=== PATIENT | female | born 1995 | race Caucasian/White ===

== ENCOUNTER 2016-08-10 03:06 | Emergency (ER) | payer OTHER ==
[~2016-08-10] VITALS: Ht 162.6 cm; Wt 99.8 kg
[~2016-08-10 03:06] MED LIST: MICA40TA PO; NEXI40CA PO; PRED20TA PO; TOPA50TA7 PO
[2016-08-10] MEDS ORDERED: DILT60TA PO (03:14)
[2016-08-10] MEDS ORDERED: methylPREDNISolone INJ 125 MG/2 ML VIAL (J2930) IV ONE (03:30)
[2016-08-10] MEDS ORDERED: NS 1,000 ML IV ONE (03:30)
[2016-08-10] MEDS ORDERED: diphenhydrAMINE INJ 50MG/ML VIAL (J1200) IV ONE (03:30)
[2016-08-10] MEDS ORDERED: FAMOTIDINE IV BAG 20 MG in APPROPRIATE DILUENT 1 EA IV ONE (03:30)
[2016-08-10 04:38] VITALS: BP 123/86
[2016-08-10] MEDS ORDERED: PRED20TA PO (04:42)
[2016-08-10 05:04] LABS: ANION GAP 10 MEQ/L (8-16); BLOOD UREA NITROGEN 26 MG/DL (7-18); CALCIUM LEVEL 7.2 MG/DL (8.5-10.1); CARBON DIOXIDE LEVEL 24 MEQ/L (21-32); CHLORIDE LEVEL 108 MEQ/L (98-107); CREATININE FOR GFR 2.36 MG/DL (0.55-1.02); GLUCOSE, FASTING 95 MG/DL (70-105); POTASSIUM SERUM 3.8 MEQ/L (3.5-5.1); SODIUM LEVEL 142 MEQ/L (136-145)
== END 2016-08-10 04:47 | disposition home or self-care (01) ==
LOC: M ED 03:51
DX: T78.3XXA Angioneurotic edema, initial encounter (principal); Z79.899 Other long term (current) drug therapy; Z88.2 Allergy status to sulfonamides; Z88.1 Allergy status to other antibiotic agents; Z91.040 Latex allergy status
CPT/HCPCS: 36415; 80048; 86850; 86900; 86901; 96361; 96374; 96375; 99283; J1200; J2930

== ENCOUNTER 2017-07-07 06:01 | Inpatient (IN) | payer OTHER ==
[2017-07-07] MEDS: NS 1,000 ML IV ×3 (06:40→20:35)
[2017-07-07] MEDS: KETOROLAC 30 MG/ML VIAL (J1885) IV (06:41)
[2017-07-07] MEDS: MORPHINE 4 MG/ML 1ML VIAL (J2270) IV (06:41)
[2017-07-07] MEDS: ONDANSETRON 4MG/2ML VIAL (J2405) IV (06:43)
[2017-07-07 06:47] LABS: BASO % 0.3 % (0.0-1.0); EOS # 0.3 10^3/uL (0.0-0.50); EOS % 2.5 % (0.0-3.0); HEMATOCRIT 27.7 % (36.0-47.0); HEMOGLOBIN 8.8 g/dl (12.0-16.0); IMMATURE GRANULOCYTE % 0.4 % (0-3.0); LYMPH # 2.2 10^3/uL (1.5-6.5); LYMPH % 18.6 % (24.0-44.0); MEAN CORPUSCULAR HEMOGLOBIN 23.9 pg (27.0-33.0); MEAN CORPUSCULAR HGB CONC 31.8 g/dl (32.0-36.5); MEAN CORPUSCULAR VOLUME 75.3 fl (80.0-96.0); MONO # 0.7 10^3/uL (0.0-0.8); MONO % 5.5 % (0.0-5.0); NEUTROPHILS # 8.7 10^3/uL (1.8-7.7); NEUTROPHILS % 72.7 % (36.0-66.0); PLATELET COUNT, AUTOMATED 330 10^3/uL (150-450); RED BLOOD COUNT 3.68 10^6/uL (4.00-5.40); RED CELL DISTRIBUTION WIDTH 13.5 % (11.5-14.5)
[2017-07-07 07:01] LABS: CONTROL LINE HCG INT CTR LINE PRESENT; HCG, SERUM QUALITATIVE NEGATIVE (NEGATIVE)
[2017-07-07 07:07] LABS: ALBUMIN 3.4 GM/DL (3.2-5.2); ALBUMIN/GLOBULIN RATIO 0.83 (1.00-1.93); ALKALINE PHOSPHATASE 88 U/L (45-117); ALT/SGPT 14 U/L (12-78); ANION GAP 11 MEQ/L (8-16); AST/SGOT 13 U/L (7-37); BILIRUBIN,DIRECT < 0.1 MG/DL (0.0-0.2); BILIRUBIN,TOTAL 0.2 MG/DL (0.2-1.0); BLOOD UREA NITROGEN 45 MG/DL (7-18); CALCIUM LEVEL 8.4 MG/DL (8.5-10.1); CARBON DIOXIDE LEVEL 23 MEQ/L (21-32); CHLORIDE LEVEL 104 MEQ/L (98-107); CREATININE FOR GFR 3.17 MG/DL (0.55-1.30); GLOMERULAR FILTRATION RATE 19.7 (>60); GLUCOSE, FASTING 106 MG/DL (70-100); LIPASE 394 U/L (73-393); POTASSIUM SERUM 3.7 MEQ/L (3.5-5.1); SODIUM LEVEL 138 MEQ/L (136-145); TOTAL PROTEIN 7.5 GM/DL (6.4-8.2)
[2017-07-07 07:45] LABS: APPEARANCE, URINE CLEAR (CLEAR); BACTERIA, URINE AUTO NEGATIVE (NEGATIVE); BILIRUBIN, URINE AUTO NEGATIVE (NEGATIVE); BLOOD, URINE BLOOD 1+ (NEGATIVE); COLOR, URINE STRAW (YELLOW); GLUCOSE, URINE (UA) AUTO NEGATIVE (NEGATIVE); KETONE, URINE AUTO NEGATIVE (NEGATIVE); LEUKOCYTE ESTERASE, URINE AUTO NEGATIVE (NEGATIVE); NITRITE, URINE AUTO NEGATIVE (NEGATIVE); PROTEIN, URINE AUTO 2+ mg/dL (NEGATIVE); RBC, URINE AUTO 2 /HPF (0-3); SQUAMOUS EPITHELIAL CELL UR AU 0 /HPF (0-6); UROBILINOGEN, URINE AUTO 0.2 mg/dL (0.0-2.0); WBC, URINE AUTO 2 /HPF (0-3)
[2017-07-07] MEDS ORDERED: MYCOPHENOLATE MOFETIL 250 MG CAP (J7517) PO (09:00)
[2017-07-07] MEDS ORDERED: diltiaZEM **CD** 180 MG CAP PO (09:00)
[2017-07-07 09:40] LABS: ANION GAP 9 MEQ/L (8-16); BLOOD UREA NITROGEN 44 MG/DL (7-18); CALCIUM LEVEL 7.7 MG/DL (8.5-10.1); CARBON DIOXIDE LEVEL 23 MEQ/L (21-32); CHLORIDE LEVEL 108 MEQ/L (98-107); CREATININE FOR GFR 2.95 MG/DL (0.55-1.30); GLOMERULAR FILTRATION RATE 21.4 (>60); GLUCOSE, FASTING 93 MG/DL (70-100); POTASSIUM SERUM 4.2 MEQ/L (3.5-5.1); SODIUM LEVEL 140 MEQ/L (136-145)
[2017-07-07] MEDS: FERROUS SULFATE 325MG TAB PO (11:50)
[2017-07-07] MEDS: CARVedilol 3.125 MG TAB PO ×2 (11:50→22:02)
[2017-07-07] MEDS: cloNIDine 0.1 MG TAB PO ×2 (11:50→22:03)
[2017-07-07] MEDS: PANTOPRAZOLE 40MG TAB (PROTONIX) PO (17:51)
[2017-07-07] MEDS: MYCOPHENOLATE MOFETIL 250 MG CAP (J7517) PO (22:01)
[2017-07-08] MEDS: NS 1,000 ML IV ×2 (06:10→15:34)
[2017-07-08 06:54] LABS: HEMATOCRIT 23.1 % (36.0-47.0); HEMOGLOBIN 7.1 g/dl (12.0-16.0); MEAN CORPUSCULAR HEMOGLOBIN 23.8 pg (27.0-33.0); MEAN CORPUSCULAR HGB CONC 30.7 g/dl (32.0-36.5); MEAN CORPUSCULAR VOLUME 77.5 fl (80.0-96.0); PLATELET COUNT, AUTOMATED 213 10^3/uL (150-450); RED BLOOD COUNT 2.98 10^6/uL (4.00-5.40); RED CELL DISTRIBUTION WIDTH 13.8 % (11.5-14.5); WHITE BLOOD COUNT 6.5 10^3/uL (4.0-10.0)
[2017-07-08 07:20] LABS: ANION GAP 9 MEQ/L (8-16); BLOOD UREA NITROGEN 42 MG/DL (7-18); CALCIUM LEVEL 7.7 MG/DL (8.5-10.1); CARBON DIOXIDE LEVEL 21 MEQ/L (21-32); CHLORIDE LEVEL 114 MEQ/L (98-107); CREATININE FOR GFR 3.21 MG/DL (0.55-1.30); GLOMERULAR FILTRATION RATE 19.4 (>60); GLUCOSE, FASTING 82 MG/DL (70-100); IRON (FE) 26 UG/DL (50-170); PERCENT SATURATION 10.2 % (13.2-45.0); POTASSIUM SERUM 4.1 MEQ/L (3.5-5.1); SODIUM LEVEL 144 MEQ/L (136-145); TOTAL IRON BINDING CAPACITY 254 UG/DL (250-450)
[2017-07-08] MEDS: FERROUS SULFATE 325MG TAB PO ×2 (08:31→20:28)
[2017-07-08] MEDS: CARVedilol 3.125 MG TAB PO ×2 (08:32→20:30)
[2017-07-08] MEDS: cloNIDine 0.1 MG TAB PO ×2 (08:32→20:29)
[2017-07-08] MEDS: PANTOPRAZOLE 40MG TAB (PROTONIX) PO (08:32)
[2017-07-08] MEDS: MYCOPHENOLATE MOFETIL 250 MG CAP (J7517) PO ×2 (08:33→20:29)
[2017-07-08] MEDS: diltiaZEM **CD** 180 MG CAP PO (08:33)
[2017-07-08] MEDS: IRON DEXTRAN INJ 25 MG in NS 50 ML IV (11:48)
[2017-07-08] MEDS: NS IV (14:12)
[2017-07-08] MEDS: IRON DEXTRAN IV (14:12)
[2017-07-08] MEDS: ONDANSETRON 4MG/2ML VIAL (J2405) IV (15:33)
[2017-07-08] MEDS ORDERED: MORPHINE 4 MG/ML 1ML VIAL (J2270) IV (19:15)
[2017-07-09 08:29] LABS: HEMATOCRIT 25.6 % (36.0-47.0); HEMOGLOBIN 7.9 g/dl (12.0-16.0); MEAN CORPUSCULAR HEMOGLOBIN 24.2 pg (27.0-33.0); MEAN CORPUSCULAR HGB CONC 30.9 g/dl (32.0-36.5); MEAN CORPUSCULAR VOLUME 78.3 fl (80.0-96.0); PLATELET COUNT, AUTOMATED 244 10^3/uL (150-450); RED BLOOD COUNT 3.27 10^6/uL (4.00-5.40); RED CELL DISTRIBUTION WIDTH 13.9 % (11.5-14.5); WHITE BLOOD COUNT 7.8 10^3/uL (4.0-10.0)
[2017-07-09 08:57] LABS: ALBUMIN 3.1 GM/DL (3.2-5.2); ANION GAP 7 MEQ/L (8-16); BLOOD UREA NITROGEN 36 MG/DL (7-18); CARBON DIOXIDE LEVEL 25 MEQ/L (21-32); CHLORIDE LEVEL 112 MEQ/L (98-107); CREATININE FOR GFR 2.81 MG/DL (0.55-1.30); GLOMERULAR FILTRATION RATE 22.6 (>60); GLUCOSE, FASTING 122 MG/DL (70-100); PHOSPHORUS LEVEL 2.9 MG/DL (2.5-4.9); POTASSIUM SERUM 4.2 MEQ/L (3.5-5.1); SODIUM LEVEL 144 MEQ/L (136-145)
[2017-07-09] MEDS: FERROUS SULFATE 325MG TAB PO (08:58)
[2017-07-09] MEDS: PANTOPRAZOLE 40MG TAB (PROTONIX) PO (08:58)
[2017-07-09] MEDS: cloNIDine 0.1 MG TAB PO (08:59)
[2017-07-09] MEDS: CARVedilol 3.125 MG TAB PO (08:59)
[2017-07-09] MEDS: diltiaZEM **CD** 180 MG CAP PO (09:00)
[2017-07-09] MEDS: MYCOPHENOLATE MOFETIL 250 MG CAP (J7517) PO (09:00)
== END 2017-07-09 12:35 | disposition home or self-care (01) | DRG 694 ==
LOC: M ED 06:01 → M ED INP 10:10 → M PED 12:39
DX: N13.0 Hydronephrosis with ureteropelvic junction obstruction (principal); N05.8 Unspecified nephritic syndrome with other morphologic changes; N17.9 Acute kidney failure, unspecified; I10 Essential (primary) hypertension; D50.9 Iron deficiency anemia, unspecified; Q03.9 Congenital hydrocephalus, unspecified; Z98.2 Presence of cerebrospinal fluid drainage device; Z79.899 Other long term (current) drug therapy; Z91.040 Latex allergy status; Z88.2 Allergy status to sulfonamides; Z88.1 Allergy status to other antibiotic agents

== ENCOUNTER → 2017-08-09 | Outpatient (CLI) | payer OTHER | LOC: M RAD 11:11 | DX: N18.6 End stage renal disease (principal) | CPT/HCPCS: G0365 ==

== ENCOUNTER 2017-09-06 02:18 | Emergency (ER) | payer OTHER ==
[2017-09-06] MEDS: ONDANSETRON 4MG/2ML VIAL (J2405) IV (03:07)
[2017-09-06] MEDS: NS 1,000 ML IV (03:07)
[2017-09-06] MEDS: PANTOPRAZOLE 40MG INJ (PROTONIX) (C9113) IV (03:07)
[2017-09-06 03:10] LABS: BASO % 0.5 % (0.0-1.0); EOS # 0.2 10^3/uL (0.0-0.50); EOS % 2.5 % (0.0-3.0); HEMATOCRIT 29.3 % (36.0-47.0); HEMOGLOBIN 9.3 g/dl (12.0-15.5); IMMATURE GRANULOCYTE % 0.2 % (0-3.0); LYMPH # 2.2 10^3/uL (1.5-6.5); LYMPH % 24.7 % (24.0-44.0); MEAN CORPUSCULAR HEMOGLOBIN 24.4 pg (27.0-33.0); MEAN CORPUSCULAR HGB CONC 31.7 g/dl (32.0-36.5); MEAN CORPUSCULAR VOLUME 76.9 fl (80.0-96.0); MONO # 0.5 10^3/uL (0.0-0.8); MONO % 5.3 % (0.0-5.0); NEUTROPHILS # 5.8 10^3/uL (1.8-7.7); NEUTROPHILS % 66.8 % (36.0-66.0); PLATELET COUNT, AUTOMATED 290 10^3/uL (150-450); RED BLOOD COUNT 3.81 10^6/uL (4.00-5.40); RED CELL DISTRIBUTION WIDTH 13.3 % (11.5-14.5); WHITE BLOOD COUNT 8.7 10^3/uL (4.0-10.0)
[2017-09-06 03:22] LABS: CONTROL LINE HCG INT CTR LINE PRESENT; HCG, SERUM QUALITATIVE NEGATIVE (NEGATIVE)
[2017-09-06 03:29] LABS: ALBUMIN 3.5 GM/DL (3.2-5.2); ALBUMIN/GLOBULIN RATIO 1.13 (1.00-1.93); ALKALINE PHOSPHATASE 71 U/L (45-117); ALT/SGPT 14 U/L (12-78); ANION GAP 10 MEQ/L (8-16); AST/SGOT 12 U/L (7-37); BILIRUBIN,DIRECT < 0.1 MG/DL (0.0-0.2); BILIRUBIN,TOTAL 0.3 MG/DL (0.2-1.0); BLOOD UREA NITROGEN 37 MG/DL (7-18); CALCIUM LEVEL 8.3 MG/DL (8.5-10.1); CARBON DIOXIDE LEVEL 23 MEQ/L (21-32); CHLORIDE LEVEL 110 MEQ/L (98-107); GLOMERULAR FILTRATION RATE 21.8 (>60); GLUCOSE, FASTING 85 MG/DL (70-100); LIPASE 402 U/L (73-393); POTASSIUM SERUM 3.7 MEQ/L (3.5-5.1); SODIUM LEVEL 143 MEQ/L (136-145); TOTAL PROTEIN 6.6 GM/DL (6.4-8.2)
== END 2017-09-06 05:25 | disposition home or self-care (01) ==
LOC: M ED 02:18
DX: R11.2 Nausea with vomiting, unspecified (principal); N18.9 Chronic kidney disease, unspecified; Z79.899 Other long term (current) drug therapy; Z98.890 Other specified postprocedural states; Z87.448 Personal history of other diseases of urinary system; Z91.040 Latex allergy status; Z88.8 Allergy status to other drugs, medicaments and biological substances; Z88.1 Allergy status to other antibiotic agents; Z88.2 Allergy status to sulfonamides
CPT/HCPCS: C9113

== ENCOUNTER 2017-09-30 14:00 | Day surgery (SDC) | payer OTHER ==
[~2017-09-30 14:00] MED LIST changes: +LIDOCAINE 2% INJ 100 MG/5 ML SDV (FOR ANES.) As Ordered; -MICA40TA PO; +MIDAZOLAM INJ 2 MG/2 ML VIAL (J2250) As Ordered; -NEXI40CA PO; +ONDANSETRON 4MG/2ML VIAL (J2405) As Ordered; -PRED20TA PO; +PROPOFOL 200 MG/20 ML VIAL As Ordered; -TOPA50TA7 PO; +fentaNYL 100 MCG/2 ML INJECTION (J3010) As Ordered
[2017-09-30 14:30] LABS: CONTROL LINE UCG INT CTR LINE PRESENT; URINE PREG TEST NEGATIVE (NEGATIVE)
[2017-09-30] MEDS: NS 1,000 ML IV (15:00)
[2017-09-30 15:10] LABS: POTASSIUM SERUM 4.2 MEQ/L (3.5-5.1)
[2017-09-30] MEDS: HEPARIN SOD (PORCINE) 5000 UNITS/ML VIAL As Ordered (17:00)
[2017-09-30] MEDS ORDERED: dexameTHASONE 4 MG/ML 1ML VIAL (J1100) As Ordered (17:14)
[2017-09-30] MEDS: BUPIVACAINE HCL 0.5% 10 ML VIAL As Ordered (17:15)
[2017-09-30] MEDS: LIDOCAINE 1% MDV 20ML VIAL As Ordered (17:15)
[2017-09-30] MEDS ORDERED: PROPOFOL 200 MG/20 ML VIAL As Ordered (17:19)
== END 2017-09-30 19:40 | disposition home or self-care (01) ==
LOC: M SDC 19:40
DX: N18.9 Chronic kidney disease, unspecified (principal); I12.9 Hypertensive chronic kidney disease with stage 1 through stage 4 chronic kidney disease, or unspecified chronic kidney disease; D64.9 Anemia, unspecified; Z87.891 Personal history of nicotine dependence; F41.9 Anxiety disorder, unspecified; F32.9 Major depressive disorder, single episode, unspecified; Z79.899 Other long term (current) drug therapy; Z91.040 Latex allergy status
CPT/HCPCS: 36821

== ENCOUNTER 2017-10-18 17:55 | Emergency (ER) | payer OTHER ==
[2017-10-18] MEDS: NS 500 ML IV ×4 (18:46→21:40)
[2017-10-18] MEDS: ONDANSETRON 4MG/2ML VIAL (J2405) IV ×4 (18:46→22:02)
[2017-10-18 18:51] LABS: BASO % 0.3 % (0.0-1.0); EOS % 0.8 % (0.0-3.0); HEMATOCRIT 33.2 % (36.0-47.0); HEMOGLOBIN 10.5 g/dl (12.0-15.5); IMMATURE GRANULOCYTE % 0.3 % (0-3.0); LYMPH # 0.7 10^3/uL (1.5-6.5); LYMPH % 19.5 % (24.0-44.0); MEAN CORPUSCULAR HEMOGLOBIN 24.1 pg (27.0-33.0); MEAN CORPUSCULAR HGB CONC 31.6 g/dl (32.0-36.5); MEAN CORPUSCULAR VOLUME 76.3 fl (80.0-96.0); MONO # 0.2 10^3/uL (0.0-0.8); MONO % 4.8 % (0.0-5.0); NEUTROPHILS # 2.8 10^3/uL (1.8-7.7); NEUTROPHILS % 74.3 % (36.0-66.0); PLATELET COUNT, AUTOMATED 183 10^3/uL (150-450); RED BLOOD COUNT 4.35 10^6/uL (4.00-5.40); RED CELL DISTRIBUTION WIDTH 13.1 % (11.5-14.5); WHITE BLOOD COUNT 3.7 10^3/uL (4.0-10.0)
[2017-10-18 19:20] LABS: ALBUMIN 3.7 GM/DL (3.2-5.2); ALKALINE PHOSPHATASE 60 U/L (45-117); ALT/SGPT 31 U/L (12-78); ANION GAP 14 MEQ/L (8-16); AST/SGOT 20 U/L (7-37); BILIRUBIN,TOTAL 0.2 MG/DL (0.2-1.0); BLOOD UREA NITROGEN 46 MG/DL (7-18); CALCIUM LEVEL 8.2 MG/DL (8.5-10.1); CARBON DIOXIDE LEVEL 17 MEQ/L (21-32); CHLORIDE LEVEL 109 MEQ/L (98-107); CREATININE FOR GFR 3.92 MG/DL (0.55-1.30); GLOMERULAR FILTRATION RATE 15.3 (>60); GLUCOSE, FASTING 86 MG/DL (70-100); LIPASE 977 U/L (73-393); POTASSIUM SERUM 4.3 MEQ/L (3.5-5.1); SODIUM LEVEL 140 MEQ/L (136-145); TOTAL PROTEIN 7.4 GM/DL (6.4-8.2)
[2017-10-18] MEDS: MORPHINE 4 MG/ML 1ML VIAL/SYRINGE (J2270) IV ×2 (21:53)
== END 2017-10-19 00:20 | disposition home or self-care (01) ==
LOC: M ED 10-19 00:20
DX: R11.2 Nausea with vomiting, unspecified (principal); R19.7 Diarrhea, unspecified; N18.4 Chronic kidney disease, stage 4 (severe); I12.9 Hypertensive chronic kidney disease with stage 1 through stage 4 chronic kidney disease, or unspecified chronic kidney disease; K21.9 Gastro-esophageal reflux disease without esophagitis; Z79.899 Other long term (current) drug therapy; Z86.69 Personal history of other diseases of the nervous system and sense organs; Z87.442 Personal history of urinary calculi; Z98.890 Other specified postprocedural states; Z87.891 Personal history of nicotine dependence; Z88.1 Allergy status to other antibiotic agents; Z88.2 Allergy status to sulfonamides; Z91.040 Latex allergy status; Z88.8 Allergy status to other drugs, medicaments and biological substances
CPT/HCPCS: J2270

== ENCOUNTER 2017-10-21 00:31 | Inpatient (IN) | payer OTHER ==
[2017-10-21 01:16] LABS: AMORPHOUS SEDIMENT RFX SMALL (NEGATIVE); KETONE, URINE AUTO RFX NEGATIVE (NEGATIVE); LEUKOCYTE ESTERASE UR AUTO RFX NEGATIVE (NEGATIVE); MUCUS, URINE RFX SMALL (NEGATIVE); NITRITE, URINE AUTO RFX NEGATIVE (NEGATIVE); RBC, URINE AUTO RFX 2 /HPF (0-3); SQUAM EPITHELIAL CELL UR AURFX 2 /HPF (0-6); WBC, URINE AUTO RFX 2 /HPF (0-3)
[2017-10-21] MEDS: MORPHINE 4 MG/ML 1ML VIAL/SYRINGE (J2270) IV ×3 (01:45→13:36)
[2017-10-21] MEDS: ONDANSETRON 4MG/2ML VIAL (J2405) IV (01:45)
[2017-10-21] MEDS: NS 1,000 ML IV ×2 (01:45→11:36)
[2017-10-21 01:49] LABS: CONTROL LINE UCG INT CTR LINE PRESENT; URINE PREG TEST NEGATIVE (NEGATIVE)
[2017-10-21] MEDS: GASTROGRAFIN SOLUTION 30ML PO ×2 (01:55→02:25)
[2017-10-21 02:07] LABS: BASO % 0.4 % (0.0-1.0); EOS % 0.4 % (0.0-3.0); HEMATOCRIT 27.1 % (36.0-47.0); HEMOGLOBIN 8.7 g/dl (12.0-15.5); IMMATURE GRANULOCYTE % 0.4 % (0-3.0); LYMPH # 0.9 10^3/uL (1.5-6.5); LYMPH % 36.7 % (24.0-44.0); MEAN CORPUSCULAR HEMOGLOBIN 24.1 pg (27.0-33.0); MEAN CORPUSCULAR HGB CONC 32.1 g/dl (32.0-36.5); MEAN CORPUSCULAR VOLUME 75.1 fl (80.0-96.0); MONO # 0.2 10^3/uL (0.0-0.8); MONO % 6.3 % (0.0-5.0); NEUTROPHILS # 1.3 10^3/uL (1.8-7.7); NEUTROPHILS % 55.8 % (36.0-66.0); PLATELET COUNT, AUTOMATED 133 10^3/uL (150-450); RED BLOOD COUNT 3.61 10^6/uL (4.00-5.40); WHITE BLOOD COUNT 2.4 10^3/uL (4.0-10.0)
[2017-10-21 02:32] LABS: ALBUMIN 3.1 GM/DL (3.2-5.2); ALBUMIN/GLOBULIN RATIO 0.94 (1.00-1.93); ALKALINE PHOSPHATASE 46 U/L (45-117); ALT/SGPT 26 U/L (12-78); AMYLASE 213 U/L (25-115); ANION GAP 11 MEQ/L (8-16); AST/SGOT 23 U/L (7-37); BILIRUBIN,DIRECT < 0.1 MG/DL (0.0-0.2); BILIRUBIN,TOTAL 0.2 MG/DL (0.2-1.0); BLOOD UREA NITROGEN 42 MG/DL (7-18); C REACTIVE PROTEIN QUANTITATIV 0.65 MG/DL (0.00-0.30); CALCIUM LEVEL 7.7 MG/DL (8.5-10.1); CARBON DIOXIDE LEVEL 19 MEQ/L (21-32); CHLORIDE LEVEL 108 MEQ/L (98-107); CREATININE FOR GFR 4.19 MG/DL (0.55-1.30); GLOMERULAR FILTRATION RATE 14.1 (>60); GLUCOSE, FASTING 87 MG/DL (70-100); LIPASE 1231 U/L (73-393); POTASSIUM SERUM 4.6 MEQ/L (3.5-5.1); SODIUM LEVEL 138 MEQ/L (136-145); TOTAL PROTEIN 6.4 GM/DL (6.4-8.2)
[2017-10-21] MEDS ORDERED: GASTROGRAFIN SOLUTION 30ML (Q9963) As Ordered (02:40)
[2017-10-21 02:59] LABS: ERYTHROCYTE SEDIMENTATION RATE 65 mm/hr (0-20)
[2017-10-21] MEDS: PIPERACILLIN/TAZOBACTAM SOD 3.375 GM in D5W MINI-BAG PLUS 50 ML IV (05:45)
[2017-10-21] MEDS ORDERED: NS 1,000 ML IV (05:45)
[2017-10-21] MEDS: HEPARIN SOD (PORCINE) 5000 UNITS/ML VIAL SC ×3 (06:00→21:21)
[2017-10-21] MEDS ORDERED: LR 1,000 ML IV ×2 (07:11→10:00)
[2017-10-21] MEDS ORDERED: LIDOCAINE 2% INJ 100 MG/5 ML SDV (FOR ANES.) As Ordered (07:17)
[2017-10-21] MEDS ORDERED: MIDAZOLAM INJ 2 MG/2 ML VIAL (J2250) As Ordered (07:17)
[2017-10-21] MEDS ORDERED: PROPOFOL 200 MG/20 ML VIAL As Ordered (07:17)
[2017-10-21] MEDS ORDERED: fentaNYL 100 MCG/2 ML INJECTION (J3010) As Ordered ×3 (07:17→08:47)
[2017-10-21] MEDS ORDERED: ROCURONIUM BROMIDE 50 MG/5 ML VIAL As Ordered (07:17)
[2017-10-21] MEDS ORDERED: SUCCINYLCHOLINE 100 MG/5 ML SYRINGE (J0330) As Ordered (07:17)
[2017-10-21] MEDS ORDERED: ONDANSETRON 4MG/2ML VIAL (J2405) As Ordered (07:55)
[2017-10-21] MEDS ORDERED: METOCLOPRAMIDE INJ 10MG/2ML VIAL (J2765) As Ordered (07:55)
[2017-10-21] MEDS ORDERED: dexameTHASONE 4 MG/ML 1ML VIAL (J1100) As Ordered (07:55)
[2017-10-21] MEDS ORDERED: LABETALOL HCL 100 MG/20 ML VIAL As Ordered (07:59)
[2017-10-21] MEDS ORDERED: MYCOPHENOLATE MOFETIL 250 MG CAP (J7517) PO (09:00)
[2017-10-21] MEDS: ceFAZolin 1GM INJ (J0690 PER 500MG) As Ordered (09:16)
[2017-10-21] MEDS: BUPIVACAINE/EPIN 0.5% 30 ML VIAL As Ordered (09:25)
[2017-10-21] MEDS ORDERED: ONDANSETRON 4MG/2ML VIAL (J2405) IV (10:00)
[2017-10-21] MEDS: fentaNYL 100 MCG/2 ML INJECTION (J3010) IV ×4 (10:03→10:18)
[2017-10-21] MEDS: HYDROMORPHONE HCL 0.5 MG/ 0.5 ML SYRINGE (J1170 PER 1) IV ×5 (10:25→10:45)
[2017-10-21] MEDS: PERCOCET 5MG/325MG TAB PO (10:59)
[2017-10-21] MEDS: SENOKOT S TAB PO ×2 (11:35→20:28)
[2017-10-21] MEDS: ISOSORBIDE MON. (IMDUR) 30 MG XR TAB PO (11:35)
[2017-10-21] MEDS: cloNIDine 0.1 MG TAB PO ×2 (11:36→20:30)
[2017-10-21] MEDS: amLODIPine 5 MG TAB PO (11:36)
[2017-10-21] MEDS: CARVedilol 3.125 MG TAB PO ×2 (11:36→20:29)
[2017-10-21] MEDS: FERROUS SULFATE 325MG TAB PO ×2 (11:36→20:28)
[2017-10-21] MEDS: CALCITRIOL 0.25 MCG CAP (S0169) PO (11:36)
[2017-10-21] MEDS ORDERED: PIPERACILLIN/TAZOBACTAM SOD 3.375 GM in D5W MINI-BAG PLUS 50 ML IV (12:00)
[2017-10-21] MEDS: MYCOPHENOLATE MOFETIL 250 MG CAP (J7517) PO ×2 (14:42→20:28)
[2017-10-21] MEDS: PIPERACILLIN/TAZOBACTAM SOD 2.25 GM in D5W MINI-BAG PLUS 50 ML IV ×3 (14:42→23:32)
[2017-10-21] MEDS: NORCO, ANEXSIA 5/325MG TABLET (HYDROcodone/ACETAMINOPHEN) PO (18:13)
[2017-10-22] MEDS: NORCO, ANEXSIA 5/325MG TABLET (HYDROcodone/ACETAMINOPHEN) PO ×3 (00:24→16:48)
[2017-10-22 05:52] LABS: HEMATOCRIT 27.3 % (36.0-47.0); HEMOGLOBIN 8.6 g/dl (12.0-15.5); MEAN CORPUSCULAR HEMOGLOBIN 24.2 pg (27.0-33.0); MEAN CORPUSCULAR HGB CONC 31.5 g/dl (32.0-36.5); MEAN CORPUSCULAR VOLUME 76.9 fl (80.0-96.0); PLATELET COUNT, AUTOMATED 130 10^3/uL (150-450); RED BLOOD COUNT 3.55 10^6/uL (4.00-5.40); RED CELL DISTRIBUTION WIDTH 13.2 % (11.5-14.5); WHITE BLOOD COUNT 5.7 10^3/uL (4.0-10.0)
[2017-10-22] MEDS: PIPERACILLIN/TAZOBACTAM SOD 2.25 GM in D5W MINI-BAG PLUS 50 ML IV ×3 (05:52→18:32)
[2017-10-22] MEDS: HEPARIN SOD (PORCINE) 5000 UNITS/ML VIAL SC ×3 (05:52→20:33)
[2017-10-22 06:17] LABS: ALBUMIN 2.8 GM/DL (3.2-5.2); ALBUMIN/GLOBULIN RATIO 0.88 (1.00-1.93); ALKALINE PHOSPHATASE 38 U/L (45-117); ALT/SGPT 18 U/L (12-78); ANION GAP 9 MEQ/L (8-16); AST/SGOT 15 U/L (7-37); BILIRUBIN,TOTAL 0.2 MG/DL (0.2-1.0); BLOOD UREA NITROGEN 41 MG/DL (7-18); CALCIUM LEVEL 7.4 MG/DL (8.5-10.1); CARBON DIOXIDE LEVEL 17 MEQ/L (21-32); CHLORIDE LEVEL 115 MEQ/L (98-107); CREATININE FOR GFR 4.55 MG/DL (0.55-1.30); GLOMERULAR FILTRATION RATE 12.8 (>60); GLUCOSE, FASTING 93 MG/DL (70-100); MAGNESIUM LEVEL 1.7 MG/DL (1.8-2.4); POTASSIUM SERUM 4.4 MEQ/L (3.5-5.1); SODIUM LEVEL 141 MEQ/L (136-145)
[2017-10-22] MEDS: CARVedilol 3.125 MG TAB PO ×2 (08:00→20:32)
[2017-10-22] MEDS: CALCITRIOL 0.25 MCG CAP (S0169) PO (08:00)
[2017-10-22] MEDS: MYCOPHENOLATE MOFETIL 250 MG CAP (J7517) PO ×2 (08:00→20:32)
[2017-10-22] MEDS: FERROUS SULFATE 325MG TAB PO ×2 (08:00→20:32)
[2017-10-22] MEDS: LR 1,000 ML IV ×2 (08:00→15:30)
[2017-10-22] MEDS: cloNIDine 0.1 MG TAB PO ×2 (08:01→20:33)
[2017-10-22] MEDS: ISOSORBIDE MON. (IMDUR) 30 MG XR TAB PO (08:01)
[2017-10-22] MEDS: SENOKOT S TAB PO ×2 (08:02→20:31)
[2017-10-22] MEDS: amLODIPine 5 MG TAB PO (08:02)
[2017-10-22] MEDS: MAG SULF 1GM/100ML (MAG RUN) 1 GM in APPROPRIATE DILUENT 1 EA IV (08:48)
[2017-10-22] MEDS: guaiFENesin ER 600 MG TAB PO ×2 (11:48→20:32)
[2017-10-22] MEDS: ONDANSETRON 4MG/2ML VIAL (J2405) IV (16:48)
[2017-10-22 18:11] LABS: LACTIC ACID SEPSIS PROTOCOL 1.5 MMOL/L (0.4-2.0)
[2017-10-23] MEDS: PIPERACILLIN/TAZOBACTAM SOD 2.25 GM in D5W MINI-BAG PLUS 50 ML IV ×4 (00:19→17:33)
[2017-10-23] MEDS: NORCO, ANEXSIA 5/325MG TABLET (HYDROcodone/ACETAMINOPHEN) PO ×3 (00:20→20:05)
[2017-10-23] MEDS: LR 1,000 ML IV ×4 (00:20→20:09)
[2017-10-23] MEDS: HEPARIN SOD (PORCINE) 5000 UNITS/ML VIAL SC ×3 (06:23→20:09)
[2017-10-23] MEDS: SIMETHICONE 40MG/0.6ML DROPS 30ML PO (06:25)
[2017-10-23] MEDS: ONDANSETRON 4MG/2ML VIAL (J2405) IV ×2 (06:33→20:02)
[2017-10-23 06:34] LABS: HEMATOCRIT 21.8 % (36.0-47.0); MEAN CORPUSCULAR HEMOGLOBIN 24.2 pg (27.0-33.0); MEAN CORPUSCULAR HGB CONC 31.7 g/dl (32.0-36.5); MEAN CORPUSCULAR VOLUME 76.5 fl (80.0-96.0); PLATELET COUNT, AUTOMATED 123 10^3/uL (150-450); RED BLOOD COUNT 2.85 10^6/uL (4.00-5.40); RED CELL DISTRIBUTION WIDTH 13.3 % (11.5-14.5); WHITE BLOOD COUNT 4.4 10^3/uL (4.0-10.0)
[2017-10-23 06:38] LABS: HEMOGLOBIN 6.9 g/dl (12.0-15.5)
[2017-10-23 06:56] LABS: ALBUMIN 2.2 GM/DL (3.2-5.2); ALBUMIN/GLOBULIN RATIO 0.63 (1.00-1.93); ALKALINE PHOSPHATASE 38 U/L (45-117); ALT/SGPT 13 U/L (12-78); ANION GAP 10 MEQ/L (8-16); AST/SGOT 8 U/L (7-37); BILIRUBIN,TOTAL 0.3 MG/DL (0.2-1.0); BLOOD UREA NITROGEN 36 MG/DL (7-18); CALCIUM LEVEL 7.7 MG/DL (8.5-10.1); CARBON DIOXIDE LEVEL 17 MEQ/L (21-32); CHLORIDE LEVEL 116 MEQ/L (98-107); CREATININE FOR GFR 4.57 MG/DL (0.55-1.30); GLOMERULAR FILTRATION RATE 12.8 (>60); GLUCOSE, FASTING 82 MG/DL (70-100); MAGNESIUM LEVEL 1.8 MG/DL (1.8-2.4); POTASSIUM SERUM 3.9 MEQ/L (3.5-5.1); SODIUM LEVEL 143 MEQ/L (136-145); TOTAL PROTEIN 5.7 GM/DL (6.4-8.2)
[2017-10-23] MEDS: SENOKOT S TAB PO ×2 (07:09→20:06)
[2017-10-23] MEDS: CALCITRIOL 0.25 MCG CAP (S0169) PO (09:37)
[2017-10-23] MEDS: FERROUS SULFATE 325MG TAB PO ×2 (09:40→20:06)
[2017-10-23] MEDS: cloNIDine 0.1 MG TAB PO ×2 (09:40→20:06)
[2017-10-23] MEDS: amLODIPine 5 MG TAB PO (09:40)
[2017-10-23] MEDS: CARVedilol 3.125 MG TAB PO ×2 (09:41→20:05)
[2017-10-23] MEDS: guaiFENesin ER 600 MG TAB PO ×2 (09:41→20:06)
[2017-10-23] MEDS: ISOSORBIDE MON. (IMDUR) 30 MG XR TAB PO (09:41)
[2017-10-23] MEDS: PANTOPRAZOLE 40MG TAB (PROTONIX) PO (10:21)
[2017-10-23 12:19] LABS: IMMEDIATE SPIN CROSSMATCH 1 2
[2017-10-23] MEDS: BENZONATATE 100 MG CAP PO (20:09)
[2017-10-24] MEDS: PIPERACILLIN/TAZOBACTAM SOD 2.25 GM in D5W MINI-BAG PLUS 50 ML IV ×4 (00:25→17:09)
[2017-10-24] MEDS: NORCO, ANEXSIA 5/325MG TABLET (HYDROcodone/ACETAMINOPHEN) PO ×2 (04:40→20:51)
[2017-10-24] MEDS: LR 1,000 ML IV (06:03)
[2017-10-24] MEDS: HEPARIN SOD (PORCINE) 5000 UNITS/ML VIAL SC ×3 (06:03→20:46)
[2017-10-24 06:18] LABS: HEMOGLOBIN 8.6 g/dl (12.0-15.5); MEAN CORPUSCULAR HEMOGLOBIN 25.5 pg (27.0-33.0); MEAN CORPUSCULAR HGB CONC 33.1 g/dl (32.0-36.5); MEAN CORPUSCULAR VOLUME 77.2 fl (80.0-96.0); PLATELET COUNT, AUTOMATED 139 10^3/uL (150-450); RED BLOOD COUNT 3.37 10^6/uL (4.00-5.40); RED CELL DISTRIBUTION WIDTH 14.6 % (11.5-14.5); WHITE BLOOD COUNT 5.3 10^3/uL (4.0-10.0)
[2017-10-24 06:36] LABS: ALBUMIN/GLOBULIN RATIO 0.56 (1.00-1.93); ALKALINE PHOSPHATASE 41 U/L (45-117); ALT/SGPT 9 U/L (12-78); ANION GAP 9 MEQ/L (8-16); AST/SGOT 8 U/L (7-37); BILIRUBIN,TOTAL 0.3 MG/DL (0.2-1.0); BLOOD UREA NITROGEN 34 MG/DL (7-18); CALCIUM LEVEL 7.6 MG/DL (8.5-10.1); CARBON DIOXIDE LEVEL 17 MEQ/L (21-32); CHLORIDE LEVEL 119 MEQ/L (98-107); CREATININE FOR GFR 4.34 MG/DL (0.55-1.30); GLOMERULAR FILTRATION RATE 13.6 (>60); GLUCOSE, FASTING 85 MG/DL (70-100); MAGNESIUM LEVEL 1.7 MG/DL (1.8-2.4); POTASSIUM SERUM 3.8 MEQ/L (3.5-5.1); SODIUM LEVEL 145 MEQ/L (136-145); TOTAL PROTEIN 5.6 GM/DL (6.4-8.2)
[2017-10-24] MEDS: MAG SULF 1GM/100ML (MAG RUN) 1 GM in APPROPRIATE DILUENT 1 EA IV (07:36)
[2017-10-24] MEDS: SENOKOT S TAB PO ×2 (09:00→20:45)
[2017-10-24] MEDS: CALCITRIOL 0.25 MCG CAP (S0169) PO (09:04)
[2017-10-24] MEDS: PANTOPRAZOLE 40MG TAB (PROTONIX) PO (09:04)
[2017-10-24] MEDS: guaiFENesin ER 600 MG TAB PO ×2 (09:04→20:45)
[2017-10-24] MEDS: ISOSORBIDE MON. (IMDUR) 30 MG XR TAB PO (09:05)
[2017-10-24] MEDS: amLODIPine 5 MG TAB PO (09:05)
[2017-10-24] MEDS: FERROUS SULFATE 325MG TAB PO (09:05)
[2017-10-24] MEDS: cloNIDine 0.1 MG TAB PO ×2 (09:05→20:45)
[2017-10-24] MEDS: CARVedilol 3.125 MG TAB PO ×2 (09:06→20:45)
[2017-10-24 10:29] LABS: FERRITIN 703 NG/ML (8-252); IRON (FE) 79 UG/DL (50-170); PERCENT SATURATION 81.4 % (13.2-45.0); TOTAL IRON BINDING CAPACITY 97 UG/DL (250-450)
[2017-10-24] MEDS: SODIUM BICARBONATE 50 MEQ in NS 0.45% 1,000 ML IV (12:57)
[2017-10-25] MEDS: PIPERACILLIN/TAZOBACTAM SOD 2.25 GM in D5W MINI-BAG PLUS 50 ML IV ×4 (00:46→18:36)
[2017-10-25] MEDS: SODIUM BICARBONATE 50 MEQ in NS 0.45% 1,000 ML IV (02:08)
[2017-10-25] MEDS: HEPARIN SOD (PORCINE) 5000 UNITS/ML VIAL SC ×5 (05:58→22:00)
[2017-10-25 06:10] LABS: HEMOGLOBIN 8.5 g/dl (12.0-15.5); MEAN CORPUSCULAR HEMOGLOBIN 24.4 pg (27.0-33.0); MEAN CORPUSCULAR HGB CONC 31.5 g/dl (32.0-36.5); MEAN CORPUSCULAR VOLUME 77.6 fl (80.0-96.0); PLATELET COUNT, AUTOMATED 144 10^3/uL (150-450); RED BLOOD COUNT 3.48 10^6/uL (4.00-5.40); RED CELL DISTRIBUTION WIDTH 15.1 % (11.5-14.5); WHITE BLOOD COUNT 4.2 10^3/uL (4.0-10.0)
[2017-10-25 06:29] LABS: ALKALINE PHOSPHATASE 42 U/L (45-117); ALT/SGPT 9 U/L (12-78); ANION GAP 8 MEQ/L (8-16); AST/SGOT 5 U/L (7-37); BILIRUBIN,TOTAL 0.3 MG/DL (0.2-1.0); BLOOD UREA NITROGEN 31 MG/DL (7-18); CALCIUM LEVEL 7.8 MG/DL (8.5-10.1); CARBON DIOXIDE LEVEL 20 MEQ/L (21-32); CHLORIDE LEVEL 116 MEQ/L (98-107); CREATININE FOR GFR 4.64 MG/DL (0.55-1.30); GLOMERULAR FILTRATION RATE 12.6 (>60); GLUCOSE, FASTING 83 MG/DL (70-100); MAGNESIUM LEVEL 1.9 MG/DL (1.8-2.4); POTASSIUM SERUM 3.6 MEQ/L (3.5-5.1); SODIUM LEVEL 144 MEQ/L (136-145)
[2017-10-25] MEDS: SENOKOT S TAB PO ×3 (09:00→21:10)
[2017-10-25] MEDS: CALCITRIOL 0.25 MCG CAP (S0169) PO (09:47)
[2017-10-25] MEDS: PANTOPRAZOLE 40MG TAB (PROTONIX) PO (09:48)
[2017-10-25] MEDS: guaiFENesin ER 600 MG TAB PO ×2 (09:48→21:10)
[2017-10-25] MEDS: amLODIPine 5 MG TAB PO (09:48)
[2017-10-25] MEDS: cloNIDine 0.1 MG TAB PO ×2 (09:48→21:11)
[2017-10-25] MEDS: CARVedilol 3.125 MG TAB PO ×2 (09:49→21:11)
[2017-10-25] MEDS: ISOSORBIDE MON. (IMDUR) 30 MG XR TAB PO (09:49)
[2017-10-25] MEDS ORDERED: DICYCLOMINE 10 MG CAP PO (12:30)
[2017-10-25] MEDS: DARBEPOETIN 100 MCG/0.5 ML *NON-DIALYSIS* SYRINGE (J0881) SC (12:40)
[2017-10-25] MEDS: ACETAMINOPHEN TAB 650MG DOSE (2X325MG) PO (21:13)
[2017-10-26] MEDS: PIPERACILLIN/TAZOBACTAM SOD 2.25 GM in D5W MINI-BAG PLUS 50 ML IV ×2 (00:04→06:02)
[2017-10-26] MEDS: NORCO, ANEXSIA 5/325MG TABLET (HYDROcodone/ACETAMINOPHEN) PO (00:17)
[2017-10-26] MEDS: HEPARIN SOD (PORCINE) 5000 UNITS/ML VIAL SC (05:47)
[2017-10-26 06:05] LABS: MEAN CORPUSCULAR HEMOGLOBIN 24.7 pg (27.0-33.0); MEAN CORPUSCULAR VOLUME 77.2 fl (80.0-96.0); PLATELET COUNT, AUTOMATED 139 10^3/uL (150-450); RED BLOOD COUNT 3.24 10^6/uL (4.00-5.40); RED CELL DISTRIBUTION WIDTH 14.8 % (11.5-14.5); WHITE BLOOD COUNT 3.8 10^3/uL (4.0-10.0)
[2017-10-26 06:30] LABS: ALBUMIN 1.9 GM/DL (3.2-5.2); ALBUMIN/GLOBULIN RATIO 0.63 (1.00-1.93); ALKALINE PHOSPHATASE 38 U/L (45-117); ALT/SGPT 8 U/L (12-78); ANION GAP 10 MEQ/L (8-16); AST/SGOT 8 U/L (7-37); BILIRUBIN,TOTAL 0.3 MG/DL (0.2-1.0); BLOOD UREA NITROGEN 27 MG/DL (7-18); CALCIUM LEVEL 7.5 MG/DL (8.5-10.1); CARBON DIOXIDE LEVEL 19 MEQ/L (21-32); CHLORIDE LEVEL 117 MEQ/L (98-107); CREATININE FOR GFR 4.29 MG/DL (0.55-1.30); GLOMERULAR FILTRATION RATE 13.7 (>60); GLUCOSE, FASTING 84 MG/DL (70-100); MAGNESIUM LEVEL 1.8 MG/DL (1.8-2.4); POTASSIUM SERUM 3.7 MEQ/L (3.5-5.1); SODIUM LEVEL 146 MEQ/L (136-145); TOTAL PROTEIN 4.9 GM/DL (6.4-8.2)
[2017-10-26] MEDS: CALCITRIOL 0.25 MCG CAP (S0169) PO (08:29)
[2017-10-26] MEDS: ONDANSETRON 4MG/2ML VIAL (J2405) IV (08:29)
[2017-10-26] MEDS: guaiFENesin ER 600 MG TAB PO (08:29)
[2017-10-26] MEDS: PANTOPRAZOLE 40MG TAB (PROTONIX) PO (08:29)
[2017-10-26] MEDS: ISOSORBIDE MON. (IMDUR) 30 MG XR TAB PO (08:30)
[2017-10-26] MEDS: amLODIPine 5 MG TAB PO (08:30)
[2017-10-26] MEDS: cloNIDine 0.1 MG TAB PO (08:31)
[2017-10-26] MEDS: CARVedilol 3.125 MG TAB PO (08:31)
[2017-10-26] MEDS: SENOKOT S TAB PO (08:31)
[2017-10-26 11:45] LABS: IMMEDIATE SPIN CROSSMATCH 1 1
== END 2017-10-26 15:00 | disposition home or self-care (01) | DRG 357 ==
LOC: M SDC 10-22 08:49 → M MSPAV 10-22 08:45 → M ED 00:31 → M SDC 05:50 → M MSPAV 11:14
PROC: 0FT44ZZ Resection of Gallbladder, Percutaneous Endoscopic Approach (ICD-10-PCS; principal; 2017-10-21 07:28)
PROC: 30233N1 Transfusion of Nonautologous Red Blood Cells into Peripheral Vein, Percutaneous Approach (ICD-10-PCS; 2017-10-21 07:28)
DX: K35.2 Acute appendicitis with generalized peritonitis (principal); N17.9 Acute kidney failure, unspecified; N25.81 Secondary hyperparathyroidism of renal origin; N18.4 Chronic kidney disease, stage 4 (severe); D62 Acute posthemorrhagic anemia; I12.9 Hypertensive chronic kidney disease with stage 1 through stage 4 chronic kidney disease, or unspecified chronic kidney disease; D64.9 Anemia, unspecified; Q03.9 Congenital hydrocephalus, unspecified; N05.8 Unspecified nephritic syndrome with other morphologic changes; Z98.2 Presence of cerebrospinal fluid drainage device; Z88.8 Allergy status to other drugs, medicaments and biological substances; Z91.040 Latex allergy status; D69.6 Thrombocytopenia, unspecified; Z79.899 Other long term (current) drug therapy; D63.1 Anemia in chronic kidney disease; E86.0 Dehydration

== ENCOUNTER 2017-10-29 18:17 | Emergency (ER) | payer OTHER ==
[2017-10-29 20:35] LABS: BASO % 0.1 % (0.0-1.0); EOS # 0.1 10^3/uL (0.0-0.50); EOS % 1.1 % (0.0-3.0); HEMATOCRIT 32.3 % (36.0-47.0); HEMOGLOBIN 10.2 g/dl (12.0-15.5); IMMATURE GRANULOCYTE % 0.8 % (0-3.0); LYMPH # 0.9 10^3/uL (1.5-6.5); MEAN CORPUSCULAR HEMOGLOBIN 24.5 pg (27.0-33.0); MEAN CORPUSCULAR HGB CONC 31.6 g/dl (32.0-36.5); MEAN CORPUSCULAR VOLUME 77.6 fl (80.0-96.0); MONO # 0.3 10^3/uL (0.0-0.8); MONO % 4.5 % (0.0-5.0); NEUTROPHILS % 81.5 % (36.0-66.0); PLATELET COUNT, AUTOMATED 366 10^3/uL (150-450); RED BLOOD COUNT 4.16 10^6/uL (4.00-5.40); RED CELL DISTRIBUTION WIDTH 14.6 % (11.5-14.5); WHITE BLOOD COUNT 7.3 10^3/uL (4.0-10.0)
[2017-10-29] MEDS: MORPHINE 4 MG/ML 1ML VIAL/SYRINGE (J2270) IV (21:07)
[2017-10-29] MEDS: PROMETHAZINE 25 MG TAB PO (21:07)
[2017-10-29 21:25] LABS: ERYTHROCYTE SEDIMENTATION RATE 69 mm/hr (0-20)
[2017-10-29 21:55] LABS: LACTIC ACID SEPSIS PROTOCOL 0.5 MMOL/L (0.4-2.0)
[2017-10-29 21:59] LABS: ALBUMIN 2.4 GM/DL (3.2-5.2); ALBUMIN/GLOBULIN RATIO 0.56 (1.00-1.93); ALKALINE PHOSPHATASE 52 U/L (45-117); ALT/SGPT 12 U/L (12-78); ANION GAP 8 MEQ/L (8-16); AST/SGOT 9 U/L (7-37); BILIRUBIN,TOTAL 0.2 MG/DL (0.2-1.0); BLOOD UREA NITROGEN 28 MG/DL (7-18); C REACTIVE PROTEIN QUANTITATIV 8.46 MG/DL (0.00-0.30); CALCIUM LEVEL 8.7 MG/DL (8.5-10.1); CARBON DIOXIDE LEVEL 23 MEQ/L (21-32); CHLORIDE LEVEL 113 MEQ/L (98-107); CREATININE FOR GFR 3.73 MG/DL (0.55-1.30); GLOMERULAR FILTRATION RATE 16.2 (>60); GLUCOSE, FASTING 102 MG/DL (70-100); LIPASE 818 U/L (73-393); POTASSIUM SERUM 3.4 MEQ/L (3.5-5.1); SODIUM LEVEL 144 MEQ/L (136-145); TOTAL PROTEIN 6.7 GM/DL (6.4-8.2)
[2017-10-29] MEDS: ONDANSETRON 4 MG ORAL DISINTEGRATING TAB (Q0162 PER 1MG) PO (22:44)
[2017-10-29] MEDS: OXYCODONE/APAP 5MG/325MG(BULK FOR ED) 1 TABLET PO (22:44)
== END 2017-10-30 00:18 | disposition home or self-care (01) ==
LOC: M ED 10-30 00:18
DX: G89.18 Other acute postprocedural pain (principal); R10.9 Unspecified abdominal pain; K52.9 Noninfective gastroenteritis and colitis, unspecified; R18.8 Other ascites; I10 Essential (primary) hypertension; N18.6 End stage renal disease; K21.9 Gastro-esophageal reflux disease without esophagitis; D64.9 Anemia, unspecified; Z87.442 Personal history of urinary calculi; Z79.899 Other long term (current) drug therapy; Z88.1 Allergy status to other antibiotic agents; Z88.8 Allergy status to other drugs, medicaments and biological substances; Z91.040 Latex allergy status
CPT/HCPCS: J2270

== ENCOUNTER → 2017-11-02 | Outpatient (REF) | payer OTHER ==
[2017-11-02 15:12] LABS: LIPASE 373 U/L (73-393)
== END ==
LOC: M LAB REF 13:24
DX: R10.84 Generalized abdominal pain (principal)

== ENCOUNTER → 2017-11-06 | Outpatient (REF) | payer OTHER | LOC: M SFHCLERA 12:49 | DX: R30.0 Dysuria (principal) ==

== ENCOUNTER → 2017-12-20 | Outpatient (REF) | payer OTHER ==
[2017-12-21 14:01] LABS: FERRITIN 154 NG/ML (8-252); IRON (FE) 61 UG/DL (50-170); PERCENT SATURATION 29.3 % (13.2-45.0); TOTAL IRON BINDING CAPACITY 208 UG/DL (250-450)
== END ==
LOC: M LAB REF 12:27
DX: D50.9 Iron deficiency anemia, unspecified (principal)
CPT/HCPCS: 83550

== ENCOUNTER 2018-01-14 12:55 | Emergency (ER) | payer OTHER | END 2018-01-14 14:14 | disposition home or self-care (01) | LOC: M ED 12:55 | DX: Z76.0 Encounter for issue of repeat prescription (principal); I12.9 Hypertensive chronic kidney disease with stage 1 through stage 4 chronic kidney disease, or unspecified chronic kidney disease; N18.9 Chronic kidney disease, unspecified; K21.9 Gastro-esophageal reflux disease without esophagitis; Z79.899 Other long term (current) drug therapy; Z87.891 Personal history of nicotine dependence; Z88.1 Allergy status to other antibiotic agents; Z91.040 Latex allergy status; Z88.2 Allergy status to sulfonamides; Z88.8 Allergy status to other drugs, medicaments and biological substances | CPT/HCPCS: 99282 ==

== ENCOUNTER → 2018-01-20 | Outpatient (REF) | payer OTHER ==
[2018-01-21 13:45] LABS: HEPATITIS B SURFACE ANTIBODY POSITIVE (POSITIVE)
[2018-01-21 13:50] LABS: HEPATITIS B SURFACE ANTIGEN NEGATIVE (NEGATIVE)
[2018-01-21 14:15] LABS: HEPATITIS B CORE ANTIBODY IGM NEGATIVE (NEGATIVE); HEPATITIS C VIRUS ABY INDEX 0.2 INDEX (<0.8)
== END ==
LOC: M LAB REF 16:53
DX: N18.6 End stage renal disease (principal)

== ENCOUNTER 2018-02-10 18:05 | Emergency (ER) | payer OTHER ==
[2018-02-10] MEDS: ONDANSETRON 4MG/2ML VIAL (J2405) IV (21:25)
[2018-02-10] MEDS: KETOROLAC 30 MG/ML VIAL (J1885) IV (21:25)
[2018-02-10] MEDS: MORPHINE 2 MG/ML 1ML SYRINGE (J2270) IV (21:25)
[2018-02-10 21:44] LABS: BASO % 0.5 % (0.0-1.0); EOS # 0.1 10^3/uL (0.0-0.50); HEMATOCRIT 29.8 % (36.0-47.0); HEMOGLOBIN 10.1 g/dl (12.0-15.5); IMMATURE GRANULOCYTE % 0.3 % (0-3.0); LYMPH # 1.1 10^3/uL (1.5-6.5); LYMPH % 16.7 % (24.0-44.0); MEAN CORPUSCULAR HEMOGLOBIN 26.5 pg (27.0-33.0); MEAN CORPUSCULAR HGB CONC 33.9 g/dl (32.0-36.5); MEAN CORPUSCULAR VOLUME 78.2 fl (80.0-96.0); MONO # 0.4 10^3/uL (0.0-0.8); MONO % 5.7 % (0.0-5.0); NEUTROPHILS # 4.9 10^3/uL (1.8-7.7); NEUTROPHILS % 74.8 % (36.0-66.0); PLATELET COUNT, AUTOMATED 253 10^3/uL (150-450); RED BLOOD COUNT 3.81 10^6/uL (4.00-5.40); RED CELL DISTRIBUTION WIDTH 13.2 % (11.5-14.5); WHITE BLOOD COUNT 6.5 10^3/uL (4.0-10.0)
[2018-02-10 21:55] LABS: INR 1.03; PROTHROMBIN TIME 13.6 SECONDS (12.1-14.4)
[2018-02-10 22:02] LABS: CONTROL LINE HCG INT CTR LINE PRESENT; HCG, SERUM QUALITATIVE NEGATIVE (NEGATIVE)
[2018-02-10 22:11] LABS: ALBUMIN 3.3 GM/DL (3.2-5.2); ALBUMIN/GLOBULIN RATIO 0.94 (1.00-1.93); ALKALINE PHOSPHATASE 58 U/L (45-117); ALT/SGPT 14 U/L (12-78); ANION GAP 14 MEQ/L (8-16); AST/SGOT 18 U/L (7-37); BILIRUBIN,DIRECT < 0.1 MG/DL (0.0-0.2); BILIRUBIN,TOTAL 0.4 MG/DL (0.2-1.0); BLOOD UREA NITROGEN 42 MG/DL (7-18); CARBON DIOXIDE LEVEL 22 MEQ/L (21-32); CHLORIDE LEVEL 107 MEQ/L (98-107); CREATININE FOR GFR 2.97 MG/DL (0.55-1.30); GLOMERULAR FILTRATION RATE 25.5 (>60); GLUCOSE, FASTING 82 MG/DL (70-100); POTASSIUM SERUM 3.8 MEQ/L (3.5-5.1); SODIUM LEVEL 143 MEQ/L (136-145); TOTAL PROTEIN 6.8 GM/DL (6.4-8.2)
[2018-02-10 22:29] LABS: OSMOLALITY SERUM 300 MOSM/KG (275-295)
[2018-02-10] MEDS: cloNIDine 0.1 MG TAB PO (23:45)
[2018-02-10] MEDS: CARVedilol 6.25 MG TAB PO (23:45)
[2018-02-10] MEDS: OXYCODONE/APAP 5MG/325MG(BULK FOR ED) 1 TABLET PO (23:45)
== END 2018-02-11 00:12 | disposition home or self-care (01) ==
LOC: M ED 02-11 00:12
DX: G43.909 Migraine, unspecified, not intractable, without status migrainosus (principal); N18.6 End stage renal disease; I12.0 Hypertensive chronic kidney disease with stage 5 chronic kidney disease or end stage renal disease; Z99.2 Dependence on renal dialysis; Z98.2 Presence of cerebrospinal fluid drainage device; Z88.1 Allergy status to other antibiotic agents; Z88.2 Allergy status to sulfonamides; Z88.8 Allergy status to other drugs, medicaments and biological substances; Z91.040 Latex allergy status
CPT/HCPCS: J2405

== ENCOUNTER 2018-02-12 17:21 | Emergency (ER) | payer OTHER ==
[2018-02-12] MEDS: ONDANSETRON 4MG/2ML VIAL (J2405) IV (17:49)
[2018-02-12] MEDS: MORPHINE 4 MG/ML 1ML VIAL/SYRINGE (J2270) IV ×2 (17:49→18:13)
[2018-02-12 17:50] LABS: BASO % 0.6 % (0.0-1.0); EOS # 0.2 10^3/uL (0.0-0.50); EOS % 3.5 % (0.0-3.0); HEMATOCRIT 35.5 % (36.0-47.0); HEMOGLOBIN 11.6 g/dl (12.0-15.5); IMMATURE GRANULOCYTE % 0.4 % (0-3.0); LYMPH # 1.7 10^3/uL (1.5-6.5); LYMPH % 35.3 % (24.0-44.0); MEAN CORPUSCULAR HEMOGLOBIN 26.1 pg (27.0-33.0); MEAN CORPUSCULAR HGB CONC 32.7 g/dl (32.0-36.5); MEAN CORPUSCULAR VOLUME 79.8 fl (80.0-96.0); MONO # 0.5 10^3/uL (0.0-0.8); MONO % 10.5 % (0.0-5.0); NEUTROPHILS # 2.4 10^3/uL (1.8-7.7); NEUTROPHILS % 49.7 % (36.0-66.0); PLATELET COUNT, AUTOMATED 265 10^3/uL (150-450); RED BLOOD COUNT 4.45 10^6/uL (4.00-5.40); RED CELL DISTRIBUTION WIDTH 13.2 % (11.5-14.5); WHITE BLOOD COUNT 4.9 10^3/uL (4.0-10.0)
[2018-02-12 18:12] LABS: ERYTHROCYTE SEDIMENTATION RATE 52 mm/hr (0-20)
[2018-02-12 18:20] LABS: ALBUMIN 3.9 GM/DL (3.2-5.2); ALBUMIN/GLOBULIN RATIO 0.87 (1.00-1.93); ALKALINE PHOSPHATASE 68 U/L (45-117); ALT/SGPT 17 U/L (12-78); ANION GAP 8 MEQ/L (8-16); AST/SGOT 13 U/L (7-37); BILIRUBIN,DIRECT 0.1 MG/DL (0.0-0.2); BILIRUBIN,TOTAL 0.4 MG/DL (0.2-1.0); BLOOD UREA NITROGEN 25 MG/DL (7-18); C REACTIVE PROTEIN QUANTITATIV 0.86 MG/DL (0.00-0.30); CALCIUM LEVEL 9.5 MG/DL (8.5-10.1); CARBON DIOXIDE LEVEL 29 MEQ/L (21-32); CHLORIDE LEVEL 104 MEQ/L (98-107); CREATININE FOR GFR 2.68 MG/DL (0.55-1.30); GLOMERULAR FILTRATION RATE 28.7 (>60); GLUCOSE, FASTING 82 MG/DL (70-100); MAGNESIUM LEVEL 2.3 MG/DL (1.8-2.4); POTASSIUM SERUM 3.5 MEQ/L (3.5-5.1); SODIUM LEVEL 141 MEQ/L (136-145); TOTAL PROTEIN 8.4 GM/DL (6.4-8.2)
[2018-02-12] MEDS: MORPHINE 2 MG/ML 1ML SYRINGE (J2270) IV (19:13)
== END 2018-02-12 19:34 | disposition short-term general hospital (02) ==
LOC: M ED 17:21
DX: R51 Headache (principal); T85.02XA Displacement of ventricular intracranial (communicating) shunt, initial encounter; Y92.9 Unspecified place or not applicable; Y93.9 Activity, unspecified; I10 Essential (primary) hypertension; G43.909 Migraine, unspecified, not intractable, without status migrainosus; Z79.899 Other long term (current) drug therapy; Z88.1 Allergy status to other antibiotic agents; Z88.8 Allergy status to other drugs, medicaments and biological substances; Z91.040 Latex allergy status
CPT/HCPCS: J2270

== ENCOUNTER → 2018-03-16 | Outpatient (CLI) | payer OTHER ==
[~2018-03-16] MED LIST changes: +ISOVUE-300 61% 50ML VIAL (Q9967) As Ordered; -LIDOCAINE 2% INJ 100 MG/5 ML SDV (FOR ANES.) As Ordered; +LIDOCAINE 2% MDV 20 ML VIAL As Ordered; -ONDANSETRON 4MG/2ML VIAL (J2405) As Ordered; -PROPOFOL 200 MG/20 ML VIAL As Ordered
== END | disposition home or self-care (01) ==
LOC: M IRPRO 06:37
DX: T82.858A Stenosis of other vascular prosthetic devices, implants and grafts, initial encounter (principal); N18.6 End stage renal disease
CPT/HCPCS: 36902

== ENCOUNTER 2018-07-18 10:58 | Emergency (ER) | payer OTHER ==
[~2018-07-18] VITALS: Ht 162.6 cm; Wt 68.2 kg
[~2018-07-18 10:58] MED LIST changes: -BENA25CA4 PO; -HYDR-3715 PO; -ISOVUE-300 61% 50ML VIAL (Q9967) As Ordered ONE; -LIDOCAINE 2% MDV 20 ML VIAL As Ordered ONE; -MIDAZOLAM INJ 2 MG/2 ML VIAL (J2250) As Ordered ONE; +NORCOTAB PO; -PEPC1TAB5 PO; -diphenhydrAMINE 50 MG CAP As Ordered ONE; -fentaNYL 100 MCG/2 ML INJECTION (J3010) As Ordered ONE
[2018-07-18] MEDS ORDERED: diphenhydrAMINE INJ 50MG/ML VIAL (J1200) As Ordered ONE (11:11)
[2018-07-18] MEDS ORDERED: diphenhydrAMINE INJ 50MG/ML VIAL (J1200) IV ONE (11:15)
[2018-07-18] MEDS ORDERED: ALBUTEROL SULFATE 2.5 MG/0.5 ML INH NEB SOLN INH ONE (11:15)
[2018-07-18] MEDS ORDERED: methylPREDNISolone INJ 125 MG/2 ML VIAL (J2930) IV ONE (11:15)
[2018-07-18] MEDS ORDERED: IPRATROPIUM 0.5MG/ALBUTEROL 2.5MG INH SOL UD 3ML (DUONEB)(J7620) NEB ONE ×2 (11:15)
[2018-07-18] MEDS ORDERED: diphenhydrAMINE INJ 50MG/ML VIAL (J1200) IM ONE (11:15)
[2018-07-18] MEDS ORDERED: ALBUTEROL SULFATE 2.5 MG/0.5 ML INH NEB SOLN NEB SCH (11:15)
[2018-07-18] MEDS ORDERED: FAMOTIDINE IV BAG 20 MG in APPROPRIATE DILUENT 1 EA IV ONE (11:15)
[2018-07-18] MEDS ORDERED: ALBUTEROL SULFATE 2.5 MG/0.5 ML INH NEB SOLN As Ordered ONE (11:16)
[2018-07-18] MEDS ORDERED: diphenhydrAMINE INJ 50MG/ML VIAL (J1200) IV STA (11:18)
[2018-07-18 11:21] LABS: BASO % 0.2 % (0.0-1.0); EOS % 0.7 % (0.0-3.0); HEMATOCRIT 38.5 % (36.0-47.0); HEMOGLOBIN 12.2 g/dl (12.0-15.5); LYMPH # 2.3 10^3/uL (1.5-6.5); LYMPH % 42.3 % (24.0-44.0); MEAN CORPUSCULAR HEMOGLOBIN 26.8 pg (27.0-33.0); MEAN CORPUSCULAR HGB CONC 31.7 g/dl (32.0-36.5); MEAN CORPUSCULAR VOLUME 84.6 fl (80.0-96.0); MONO # 0.3 10^3/uL (0.0-0.8); MONO % 5.2 % (0.0-5.0); NEUTROPHILS # 2.8 10^3/uL (1.8-7.7); NEUTROPHILS % 51.2 % (36.0-66.0); PLATELET COUNT, AUTOMATED 269 10^3/uL (150-450); RED BLOOD COUNT 4.55 10^6/uL (4.00-5.40); WHITE BLOOD COUNT 5.4 10^3/uL (4.0-10.0)
--- NOTE | 2018-07-18 11:48 | REP ---
PORTABLE CHEST: AP portable view of the chest is performed and compared to prior study of 10/22/2017. There is no acute infiltrate. The heart and mediastinum are unremarkable. Right-sided ventriculoperitoneal shunt catheter is again seen. IMPRESSION: No acute pulmonary disease. Electronically Signed by Vinayak Edmonds MD 07/18/2018 05:41 P
[2018-07-18 11:56] LABS: ALBUMIN 3.8 GM/DL (3.2-5.2); ALT/SGPT 18 U/L (12-78); BILIRUBIN,DIRECT < 0.1 MG/DL (0.0-0.2); BILIRUBIN,TOTAL 0.3 MG/DL (0.2-1.0); BLOOD UREA NITROGEN 33 MG/DL (7-18); CALCIUM LEVEL 8.7 MG/DL (8.5-10.1); CARBON DIOXIDE LEVEL 29 MEQ/L (21-32); CHLORIDE LEVEL 102 MEQ/L (98-107); CREATININE FOR GFR 5.13 MG/DL (0.55-1.30); GLOMERULAR FILTRATION RATE 13.6 (>60); GLUCOSE, FASTING 146 MG/DL (70-100); POTASSIUM SERUM 4.3 MEQ/L (3.5-5.1); SODIUM LEVEL 139 MEQ/L (136-145); TOTAL PROTEIN 7.8 GM/DL (6.4-8.2)
[2018-07-18] MEDS ORDERED: BENA25CA4 PO (12:22)
[2018-07-18] MEDS ORDERED: PEPC1TAB5 PO (12:22)
[2018-07-18 12:49] VITALS: BP 97/51
== END 2018-07-18 12:55 | disposition home or self-care (01) ==
LOC: M ED 10:58
DX: T78.40XA Allergy, unspecified, initial encounter (principal); I10 Essential (primary) hypertension; F33.9 Major depressive disorder, recurrent, unspecified; F41.9 Anxiety disorder, unspecified; K21.9 Gastro-esophageal reflux disease without esophagitis; Z79.899 Other long term (current) drug therapy; Z88.5 Allergy status to narcotic agent; Z88.2 Allergy status to sulfonamides; Z91.040 Latex allergy status
CPT/HCPCS: 71045; 80048; 80076; 85025; 93041; 94640; 94760; 96374; 96375; 99284; J1200; J2930

== ENCOUNTER → 2018-07-18 | Outpatient (CLI) | payer OTHER ==
[~2018-07-18] MED LIST changes: +AMLO5TAB6; +AMLO5TAB6 PO; +BENA25CA4 PO; +CALC1CAP31 PO; +CARV3.12 PO; +CLON-412 PO; +CLONI1TA PO; +DILT1CAP46 PO; +DILT60TA PO; +FERR1TAB8 PO; +FLAG500T PO; +FLUTISP; +HYDR-3715 PO; +ISOS30TA4 PO; -ISOVUE-300 61% 50ML VIAL (Q9967) As Ordered; +ISOVUE-300 61% 50ML VIAL (Q9967) As Ordered ONE; +KEFL500C17 PO; +LEVA250T13 PO; -LIDOCAINE 2% MDV 20 ML VIAL As Ordered; +LIDOCAINE 2% MDV 20 ML VIAL As Ordered ONE; +MICA40TA PO; -MIDAZOLAM INJ 2 MG/2 ML VIAL (J2250) As Ordered; +MIDAZOLAM INJ 2 MG/2 ML VIAL (J2250) As Ordered ONE; +MUCI600T37 PO; +MYCO250C; +MYCO250C PO; +MYCO500T PO; +NEXI40CA PO; +PEPC1TAB5 PO; +PERC5TAB12 PO; +PRED20TA PO; +TOPA50TA8 PO; +VITA50005 PO; +ZOFR4TAB14 PO; +diphenhydrAMINE 50 MG CAP As Ordered ONE; -fentaNYL 100 MCG/2 ML INJECTION (J3010) As Ordered; +fentaNYL 100 MCG/2 ML INJECTION (J3010) As Ordered ONE
--- NOTE | 2018-08-17 07:11 | REPIR ---
DATE OF PROCEDURE: 07/18/2018 PREPROCEDURE DIAGNOSIS: Endstage renal disease, dysfunctional right radiocephalic arteriovenous fistula. POSTPROCEDURE DIAGNOSIS: Endstage renal disease, dysfunctional right radiocephalic arteriovenous fistula. PROCEDURE: Right radiocephalic arteriovenous fistulogram, retrograde right radial artery angiogram, right cephalic vein angioplasty with 8 x 200 mm balloon. SURGEON: Dr. Vikram Menard. CRYSTAL SLICER: Noni Leija and Angela Jackson. ANESTHESIA: ESTIMATED BLOOD LOSS: INDICATION: The patient is a 22-year-old female with endstage renal disease who underwent creation of a right radiocephalic arteriovenous fistula which has been used for hemodialysis but recently has had difficulty with cannulation and flow rates as well as extensive bleeding on decannulation. The patient will undergo a fistulogram with possible angioplasty, stent and/or atherectomy. Risks, benefits and alternative treatment options were discussed with the patient. ANESTHESIA: Local with sedation with 2 mg Versed, 100 mcg of fentanyl and 2 mL of 2% lidocaine. FLUORO TIME: 1.8 minutes. CONTRAST: 5 mL of Isovue 300. SEDATION TIME: From 9:48 a.m. to 10:14 a.m. for a total of 26 minutes. Sedation was administered and cardiopulmonary monitoring performed under my direct supervision. I was present for and directed the entire case. COMPLICATIONS: None. DRAINS: None. SPECIMENS: None. IMPLANTS: None. PROCEDURE: The patient was taken to the angiography suite, placed supine on the angiography room table and then prepped and draped in a standard surgical fashion. The fistula was cannulated and a fistulogram performed showing an 80% stenosis in the cephalic vein in the forearm, and cephalic vein with angioplasty with an 8 x 200 mm balloon with a completion fistulogram showing resolution of the stenosis with good flow into the upper arm and centrally with no stenosis or occlusion noted. The retrograde radial artery angiogram was performed during inflation of the 8 x 200 mm balloon within the cephalic vein and this showed the remainder of cephalic vein to be patent into the radial artery with no stenosis at the arteriovenous anastomosis. Catheters and wires were removed. The sheath was removed and a #2-0 Prolene suture placed at the puncture site for hemostasis. Dressings were then applied. The patient tolerated the procedure well. All instrument, sponge and needle counts were correct at the end the case. There were no complications. Dr. Menard was present for directed the entire case. The patient was transferred to the holding area and subsequently discharged in stable condition. The arteriovenous fistula is stable for continued use for hemodialysis access.
== END | disposition home or self-care (01) ==
LOC: M IRPRO 08:32
PROVIDERS: ATTEND Surgery Vascular Surgery
DX: T82.858A Stenosis of other vascular prosthetic devices, implants and grafts, initial encounter (principal); N18.6 End stage renal disease; Z99.2 Dependence on renal dialysis; X58.XXXA Exposure to other specified factors, initial encounter; Y92.9 Unspecified place or not applicable
CPT/HCPCS: 36902; 94640; 99152; 99153; C1725; C1769; C1894; J2250; J3010; Q9967

== ENCOUNTER → 2018-08-03 | Outpatient (CLI) | payer OTHER ==
[~2018-08-03] MED LIST changes: +BENA25CA4 PO; +PEPC1TAB5 PO
[2018-08-03 18:15] LABS: ALBUMIN 3.7 GM/DL (3.2-5.2); BILIRUBIN,TOTAL 0.2 MG/DL (0.2-1.0); CALCIUM LEVEL 8.7 MG/DL (8.5-10.1); CHOLESTEROL RISK RATIO 4.024 (<5); CREATININE FOR GFR 4.44 MG/DL (0.55-1.30); POTASSIUM SERUM 4.3 MEQ/L (3.5-5.1); TOTAL PROTEIN 7.6 GM/DL (6.4-8.2)
[2018-08-03 18:36] LABS: HEMOGLOBIN A1c 4.2 %
[2018-08-05 10:15] LABS: TISSUE TRANSGLUTAMINASE IgA <2 U/mL (0-3)
[2018-08-05 14:44] LABS: ANTINUCLEAR ANTIBODIES DIRECT Negative (Negative)
[2018-08-07 17:07] LABS: IgG SERUM (part of Subclasses) 1246 mg/dL (700-1600); IgG Subclass 1 823 mg/dL (248-810); IgG Subclass 2 415 mg/dL (130-555); IgG Subclass 3 70 mg/dL (15-102); IgG Subclass 4 84 mg/dL (2-96)
== END ==
LOC: M LAB 16:17
PROVIDERS: ATTEND Internal Medicine Gastroenterology
DX: K85.90 Acute pancreatitis without necrosis or infection, unspecified (principal)

== ENCOUNTER → 2018-08-15 | Outpatient (CLI) | payer OTHER | LOC: M RAD 12:58 | PROVIDERS: ATTEND Internal Medicine Gastroenterology | DX: K85.90 Acute pancreatitis without necrosis or infection, unspecified (principal); Z53.8 Procedure and treatment not carried out for other reasons ==

== ENCOUNTER → 2018-09-21 | Outpatient (CLI) | payer OTHER ==
[~2018-09-21] MED LIST changes: +HYDR-3715 PO; -NORCOTAB PO
--- NOTE | 2018-09-21 14:47 | REP ---
Limited skull series: Three views. History: The patient is presents for MRI scanning with ventriculoperitoneal shunt in place. Pre scan shunt imaging was attempted. These are understanding that the patient has a [employer]man Hakim programmable valve [employer] shunt. Findings: Multiple attempts were made to project this patient's shunt valve in a perpendicular projection. We were not able to resolve the valve in sufficient detail to allow us to resolve and compare its settings pre and post MRI scanning. Accordingly, we are declining to to perform the MRI imaging study. Electronically Signed by Johann Whalen MD 09/21/2018 02:37 P
== END ==
LOC: M RAD 12:08
PROVIDERS: ATTEND Internal Medicine Gastroenterology
DX: Z01.818 Encounter for other preprocedural examination (principal); Z98.2 Presence of cerebrospinal fluid drainage device; K86.1 Other chronic pancreatitis

== ENCOUNTER → 2018-10-28 | Outpatient (CLI) | payer OTHER ==
--- NOTE | 2018-10-28 14:04 | REP ---
MRCP EXAMINATION WITHOUT CONTRAST: HISTORY: Recurrent pancreatitis. Question pancreas divisum. Question biliary sludge or stone. COMPARISON: CT study October 29, 2017. TECHNIQUE: Axial and coronal imaging planes are utilized. T2-weighted axial and coronal images are acquired. MRCP sequence acquired, and maximal intensity projection images from that sequence are generated and displayed rotationally in addition to source coronal images. MRCP FINDINGS: No filling defect is seen in the fluid-filled gallbladder to suggest gallstone. The common bile duct is normal in caliber measuring 3 mm. There is no evidence of choledocholithiasis. The pancreatic duct is seen in the proximal body and head of the pancreas and appears normally oriented. No ductal dilation is seen. No MRCP evidence to suggest pancreas divisum. No pancreatic mass lesion is seen. There does appear to be some fluid posterior to the stomach in the left upper quadrant, minimal in amount. No other finding. IMPRESSION: A small amount of left upper quadrant peritoneal fluid. No pancreatic ductal abnormality is appreciated. No pancreatic or biliary ductal dilation seen. No biliary stone seen. Electronically Signed by Johann Whalen MD 10/28/2018 03:13 P
== END ==
LOC: M PLARAD 09:58
PROVIDERS: ATTEND Internal Medicine Gastroenterology
DX: K85.90 Acute pancreatitis without necrosis or infection, unspecified (principal)

== ENCOUNTER → 2019-02-06 | Outpatient (CLI) | payer OTHER ==
[~2019-02-06] MED LIST changes: +BUPIVACAINE HCL 0.5% 10 ML VIAL As Ordered ONE; +ISOVUE-300 61% 50ML VIAL (Q9967) As Ordered ONE; +LIDOCAINE 2% MDV 20 ML VIAL As Ordered ONE; +MORPHINE 10 MG/ML 1ML VIAL (J2270) As Ordered ONE
[2019-02-06 12:03] VITALS: BP 130/80
--- NOTE | 2019-02-09 21:27 | ROOPDOC ---
[facility] Report Of Operation Report of Operation DATE OF PROCEDURE: PREOPERATIVE DIAGNOSIS: End-stage renal disease. . POSTOPERATIVE DIAGNOSIS: End-stage renal disease. . PROCEDURE: Right radiocephalic arteriovenous fistulogram. Retrograde right radial artery angiogram. SURGEON: Dr. Vikram Menard MD CLINICAL SERVICES MANAGER: [Noni Leija] INDICATION: Patient is a with end-stage renal diseas who dialyzes through a right radiocephalic arteriovenous fistula. Patient has had . Patient has pulsatility within the arteriovenous fistula and will undergo a right radiocephalic arteriovenous fistulogram. Procedure was explained to the patient in detail. Risks, benefits and alternative treatment options were discussed with the patient. Benefits included but were not limited to improved functioning of the arterial venous fistula and maintained patency. Alternative treatment options included but were not limited to no intervention. Risks included but were not limited to infection, bleeding, loss of arteriovenous access, steal syndrome, possible need for open surgical intervention, anesthetic complications, allergic reaction or complication from the prepping and draping materials, scarring of the skin, hematoma formation, bruising, possible need for transfusion of blood products, cerebrovascular accident, myocardial infarction, pulmonary embolus, deep venous thrombosis, loss of limb, loss of life and poor outcome. Patient's questions were answered. Patient voices understanding of the se risks, benefits and alternative treatment options. Patient voices acceptance of these risks associated with the procedure and consents to proceed with a fistulogram with possible angioplasty, atherectomy and/or stenting. ANESTHESIA: Local with mL of 2% lidocaine SEDATION TIME: [No sedation was given]. ESTIMATED BLOOD LOSS: mL. IV FLUIDS: mL. HEPARIN: None PROTAMINE: None FLUORO TIME: minutes CONTRAST: mL. of isovue 300 COMPLICATIONS: None DRAINS: None. SPECIMENS: None. IMPLANTS: None PROCEDURE: Patient was taken to the angiography suite, placed supine on the angiography room table and then prepped and draped in a standard surgical fashion. A procedural time-out was conducted by myself and the team members involved in the procedure confirming the correct patient, procedure and laterality. The right radiocephalic arteriovenous was then cannulated with a micro-puncture needle. A micropuncture wire was advanced through the micropuncture needle which was up-sized to a micropuncture sheath.. A right radiocephalic arteriovenous fistulogram and retrograde right radial artery angiogram were performed showing no intervention was required. The catheter was removed and manual compression applied at the puncture site for hemostasis. Dressings were then applied. Patient tolerated the procedure well. All instrument, sponge and needle counts were correct at the end of the case. Dr. Menard was present for and directed the entire case. Patient was transferred to the recovery area and subsequently discharged in stable condition. RADIOLOGIC SUPERVISION AND INTERPRETATION: The right radiocephalic arteriovenous fistulogram showed the cephalic vein to be widely patent to the antecubital fossa where there was dual outflow through the deep and superficial venous systems in the upper arm. The the deep and superficial venous systems of the upper arm were patent into the central venous system with no central venous stenosis or occlusion noted. The retrograde right radial artery angiogram marcial wed the remainder of the cephalic vein from the cannulation site to the radial artery to be widely patent. There was good flow in the radial artery proximal and distal to the arteriovenous anastomosis. There was no stenosis at the arteriovenous anastomosis. CONCLUSION: The right radiocephalic return of his fistulous pain and required no intervention. Eric Menard MD Feb 09, 2019 21:27
== END ==
LOC: M IRPRO 10:38
PROVIDERS: ATTEND Surgery Vascular Surgery
DX: N18.6 End stage renal disease (principal)
CPT/HCPCS: 36901; C1769; C1887; C1894; J2270; Q9967

== ENCOUNTER → 2019-03-03 | Outpatient (REF) | payer OTHER ==
[~2019-03-03] MED LIST changes: -BUPIVACAINE HCL 0.5% 10 ML VIAL As Ordered ONE; -ISOVUE-300 61% 50ML VIAL (Q9967) As Ordered ONE; -LIDOCAINE 2% MDV 20 ML VIAL As Ordered ONE; -MORPHINE 10 MG/ML 1ML VIAL (J2270) As Ordered ONE
[2019-03-03 19:28] LABS: APPEARANCE, URINE TURBID (CLEAR); BACTERIA, URINE AUTO 3+ (NEGATIVE); BILIRUBIN, URINE AUTO NEGATIVE (NEGATIVE); BLOOD, URINE BLOOD 1+ (NEGATIVE); COLOR, URINE YELLOW (YELLOW); GLUCOSE, URINE (UA) AUTO NEGATIVE (NEGATIVE); KETONE, URINE AUTO NEGATIVE (NEGATIVE); LEUKOCYTE ESTERASE, URINE AUTO 3+ (NEGATIVE); NITRITE, URINE AUTO NEGATIVE (NEGATIVE); PROTEIN, URINE AUTO 2+ mg/dL (NEGATIVE); RBC, URINE AUTO 37 /HPF (0-3); SPECIFIC GRAVITY URINE AUTO 1.011 (1.002-1.035); SQUAMOUS EPITHELIAL CELL UR AU 0 /HPF (0-6); UROBILINOGEN, URINE AUTO 0.2 mg/dL (0.0-2.0); WBC, URINE AUTO TNTC /HPF (0-3)
== END ==
LOC: M LAB REF 16:27
PROVIDERS: ATTEND Physician Assistant Medical
DX: N39.0 Urinary tract infection, site not specified (principal)

== ENCOUNTER → 2019-06-21 | Outpatient (REF) | payer OTHER ==
[2019-06-21 20:01] LABS: APPEARANCE, URINE TURBID (CLEAR); BACTERIA, URINE AUTO 3+ (NEGATIVE); BILIRUBIN, URINE AUTO NEGATIVE (NEGATIVE); BLOOD, URINE BLOOD 1+ (NEGATIVE); COLOR, URINE YELLOW (YELLOW); GLUCOSE, URINE (UA) AUTO NEGATIVE (NEGATIVE); KETONE, URINE AUTO NEGATIVE (NEGATIVE); LEUKOCYTE ESTERASE, URINE AUTO 3+ (NEGATIVE); NITRITE, URINE AUTO NEGATIVE (NEGATIVE); PROTEIN, URINE AUTO 1+ mg/dL (NEGATIVE); RBC, URINE AUTO 76 /HPF (0-3); SQUAMOUS EPITHELIAL CELL UR AU 10 /HPF (0-6); TRANSITIONAL EPITHELIAL AUTO 2 /HPF; UROBILINOGEN, URINE AUTO 0.2 mg/dL (0.0-2.0); WBC, URINE AUTO TNTC /HPF (0-3)
== END ==
LOC: M LAB REF 19:45
PROVIDERS: ATTEND Physician Assistant
DX: N39.0 Urinary tract infection, site not specified (principal)

== ENCOUNTER → 2019-08-15 | Outpatient (CLI) | payer OTHER ==
[~2019-08-15] MED LIST changes: +CINA30TA4 PO; +ISOVUE-300 61% 50ML VIAL (Q9967) As Ordered ONE; +LIDOCAINE 1% MDV 20ML VIAL As Ordered ONE; +MIDAZOLAM INJ 2 MG/2 ML VIAL (J2250) As Ordered ONE; +VELP5CHW PO; +fentaNYL 100 MCG/2 ML INJECTION (J3010) As Ordered ONE
[2019-08-15 16:40] VITALS: BP 126/95
--- NOTE | 2019-08-15 16:41 | ROOPDOC ---
[facility] Report Of Operation Report of Operation DATE OF PROCEDURE: 08/15/19 PREPROCEDURE DIAGNOSES: End-stage renal disease with poorly functioning right upper extremity Barb fistula POSTPROCEDURE DIAGNOSES: Same PROCEDURE: 1. Ultrasound-guided access right cephalic vein 2. Right upper extremity fistulogram 3. Coiling large branch cephalic vein with 8 mm adam coil, 5 x 3 tornado coil 4. Angioplasty cephalic vein with 8 x 100 Hope balloon 5. Completion venogram SURGEON: Ana Cantor MD ANESTHESIA: Local anesthesia 5 mL lidocaine. No sedation was used for this procedure. INDICATION FOR PROCEDURE: Ms. Herrera is a 23-year-old patient with end-stage renal disease who is having poor function of her right upper extremity AV fistula. The nurses are having trouble with proximal cannulation, diminished thrill, and concern for outflow obstruction. Risks benefits and alternatives to a fistulogram potential intervention were explained to the patient she is agreeable to proceed. Informed consent was obtained. INTERPRETATION: 1. Ultrasound revealed a widely patent arteriovenous anastomosis. 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 The aneurysm was marked on the skin with ultrasound on the upper arm. 2. Fistulogram reveals widely patent inflow through the cephalic vein with a large branch in the mid arm that appears to be feeling quite a bit of blood and possibly diminishing this thrill further up the arm. We coiled this successfully with an 8 mm and 5 x 3 mm coils. There also branches near the antecubital space that are the main outflow for the fistula into the basilic vein. The cephalic vein is occluded at the median cubital. It does not reconstitute. The outflow through the basilic appears widely patent. 3. After angioplasty between the aneurysms with an 8 x 100 Hope balloon, there is widely patent flow with no extravasation or embolization noted. REPORT OF OPERATION: The patient was brought to the angiographic suite in stable condition and placed supine on the fluoroscopic table. Her right upper extremity was prepped and draped in a sterile fashion. A timeout was performed. Local anesthesia was a conditioning room worker to the skin and subcutaneous tissue over the cephalic vein near the AV anastomosis. We then examine the fistula with ultrasound in the forearm. There is a widely patent AV anastomosis as well as a patent fistula throughout the distal arm. We then accessed the cephalic vein near the AV anastomosis with a microneedle under ultrasound guidance. A wire was passed through this access under fluoroscopic guidance and a 4 Thai sheath was placed and flushed with saline. We then performed a fistulogram. Please see int erpretation above. We advanced a Glidewire into the fistula and a glide cath. We were able to navigate into the large branch in the mid forearm. We successfully coiled the vessel with an 8 mm coil and a 5 x 3 mm coil. Additional local anesthesia was given around the branch after coiling for patient comfort. Please see interpretation above. Next, we angioplasty between the aneurysms and along the cephalic vein with an 8 x 100 Hope balloon. There is a small waist between the aneurysms which released with ballooning and there was widely patent flow in excellent thrill following the procedure. No extravasation or embolization was noted. A Prolene suture was placed in a [id number] pattern around sheath and the sheath was removed. The suture was secured and pressure was held for 5 minutes for good hemostasis. Sterile dressings were applied. The suture will be removed prior to leaving today. The patient was taken to recovery in stable condition and tolerated the procedure well with no sedation. ESTIMATED BLOOD LOSS: Approximately 2 mL. COMPLICATIONS: None PLAN: Okay to use fistula for dialysis. Okay to resume home diet medications. We appreciate the opportunity to participate in the care of this patient. ANA CANTOR MD Aug 15, 2019 16:41
== END ==
LOC: M IRPRO 13:08
PROVIDERS: ATTEND Surgery Vascular Surgery
DX: T82.598A Other mechanical complication of other cardiac and vascular devices and implants, initial encounter (principal); N18.6 End stage renal disease; X58.XXXA Exposure to other specified factors, initial encounter; Y93.9 Activity, unspecified; Y92.9 Unspecified place or not applicable; Y99.9 Unspecified external cause status
CPT/HCPCS: 36902; 71045; 80048; 85025; 93041; 94640; 94760; 96374; 96375; 99284; C1725; C1769; C1887; C1894; J1200; J1644; J2930; Q9967